=== PATIENT | female | born 1970 | race Caucasian/White ===

== ENCOUNTER 2017-10-21 22:44 | Emergency (ER) | payer SELFPAY ==
[~2017-10-21] VITALS: Ht 157.5 cm; Wt 62.1 kg
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
--- NOTE | 2017-10-22 00:17 | NUR ---
PT PROVIDED SNACK. PT RESTING CALMLY IN BED, NO DISTRESS NOTED.
[2017-10-22 00:21] LABS: BASOPHILS # (AUTO) 0.1 K/uL (0.0-8.0); BASOPHILS % (AUTO) 1.3 % (0.0-2.0); EOSINOPHILS % (AUTO) 0.3 % (0.0-7.0); HEMATOCRIT 28.9 % (31.2-41.9); HEMOGLOBIN 9.1 g/dL (10.9-14.3); LYMPHOCYTES # (AUTO) 0.8 K/uL (20.0-40.0); LYMPHOCYTES % (AUTO) 10.3 % (20.5-51.5); MEAN CORPUSCULAR HEMOGLOBIN 19.9 uug (24.7-32.8); MEAN CORPUSCULAR HGB CONC 32 g/dL (32.3-35.6); MEAN CORPUSCULAR VOLUME 63.1 fL (75.5-95.3); MONOCYTES # (AUTO) 0.3 K/uL (2.0-10.0); MONOCYTES % (AUTO) 3.5 % (0.0-11.0); NEUTROPHILS # (AUTO) 6.8 K/uL (1.8-8.9); NEUTROPHILS % (AUTO) 84.6 % (38.5-71.5); PLATELET COUNT (AUTO) 280 K/uL (179-408); RED BLOOD CELL COUNT(AUTO) 4.58 MIL/uL (3.63-4.92)
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
--- NOTE | 2017-10-22 00:28 | NUR ---
SECURITY AT PT BEDSIDE.
[2017-10-22 00:32] LABS: CARBON DIOXIDE 25 mmol/L (21-32); CHLORIDE 105 mmol/L (98-107); CREATININE 0.9 mg/dL (0.6-1.3); GLUCOSE 63 mg/dL (74-106); POTASSIUM 3.9 mmol/L (3.5-5.1); UREA NITROGEN, BLOOD 24 mg/dL (7-18)
--- NOTE | 2017-10-22 00:32 | NUR ---
DR RM SPEAKING W/ ART CAPILLA FOR CRISIS EVAL.
[2017-10-22 00:35] LABS: ETHANOL < 3 MG/DL (0-0)
[2017-10-22 00:44] LABS: ALANINE AMINOTRANSFERASE 30 U/L (14-59); ALKALINE PHOSPHATASE 98 U/L (50-136); ASPARTATE AMINOTRANSFERASE 34 U/L (15-37); BILIRUBIN,DIRECT 0.1 mg/dL (0.0-0.2); BILIRUBIN,TOTAL 0.6 mg/dL (0.2-1.0); TOTAL PROTEIN, SERUM 7.9 g/dL (6.4-8.2)
[2017-10-22 00:45] LABS: THYROID STIMULATING HORMONE 2.837 mIU/mL (0.358-3.740)
[2017-10-22 00:46] LABS: ACETAMINOPHEN < 2.0 ug/mL (10-30)
--- NOTE | 2017-10-22 01:10 | NUR ---
ART AT BEDSIDE FOR CRISIS EVAL.
[2017-10-22 01:27] LABS: EOSINOPHILS % (MANUAL) 2 % (0-8); LYMPHOCYTES % (MANUAL) 11 % (20-40); MONOCYTES % (MANUAL) 4 % (2-10); NEUTROPHILS % (MANUAL) 83 % (42-75)
[2017-10-22] MEDS ORDERED: IBUPROFEN 600 MG TABLET PO ONE (01:30)
[2017-10-22] MEDS ORDERED: OLANZAPINE 5 MG TABLET PO ONE (01:30)
[2017-10-22] MEDS ORDERED: OLANZAPINE 5 MG TABLET ONE (01:35)
--- NOTE | 2017-10-22 02:05 | NUR ---
PT RESTING IN BED W/ EYES CLOSED. NO ACUTE DIISTRESS NOTED.
[2017-10-22] MEDS ORDERED: diphenhydrAMINE 50 MG/1 ML VIAL IM ONE (02:30)
[2017-10-22] MEDS ORDERED: OLANZAPINE 10 MG VIAL IM ONE ×2 (02:30→02:40)
[2017-10-22] MEDS ORDERED: diphenhydrAMINE 50 MG/1 ML VIAL ONE (02:39)
--- NOTE | 2017-10-22 02:40 | NUR ---
PT GETTING OUT OF BED AND YELLING IN ER AND VERBALLY THREATENING STAFF. PT IS ERRATIC. CODE ARMANI CALLED. PT TO BE PLACED IN RESTRAINTS PER MD. STRATEGIC COMMUNICATIONS MANAGER AWARE AND AT BEDSIDE.
[2017-10-22 04:22] LABS: *BILIRUBIN,URIN NEGATIVE (NEGATIVE); *BLOOD, URINE 3+ (NEGATIVE); *CLARITY,URINE SLIGHTLY CLOUDY (CLEAR); *COLOR,URINE YELLOW (YELLOW); *KETONES,URINE NEGATIVE (NEGATIVE); *PROTEIN,URINE NEGATIVE (NEGATIVE); *UROBILINOGEN,URINE 0.2 E.U./dl (NORMAL); LEUKOCYTE ESTERASE ,URINE TRACE (NEGATIVE); NITRITE, URINE NEGATIVE (NEGATIVE); UGLUCOSE NEGATIVE (NEGATIVE)
[2017-10-22 04:35] LABS: *AMPHETAMINE, URINE POSITIVE (NEGATIVE); *BARBITURATE, URINE NEGATIVE (NEGATIVE); *CANNABINOID, URINE POSITIVE (NEGATIVE); *COCCAINE, URINE NEGATIVE (NEGATIVE); *OPIATE, URINE NEGATIVE (NEGATIVE); *PHENCYCLIDINE SCREEN,URINE NEGATIVE (NEGATIVE)
[2017-10-22 04:37] LABS: BACTERIA,URINE NONE SEEN /HPF (NONE SEEN); RBC,URINE 50-80 /HPF (0-3); SQUAMOUS EPITHELIAL CELL,UR FEW /HPF (NONE SEEN)
--- NOTE | 2017-10-22 05:16 | NUR ---
PT TAKEN OUT OF RESTRAINTS AT THIS POINT. PT MADE VERBAL CONTRACT TO NOT HARM SELF OR OTHERS. PT STATES SHE JUST NEEDS TO "SLEEP IT OFF." AND CABLE TESTERS HELPER AWARE.
--- NOTE | 2017-10-22 06:05 | NUR ---
PT RESTING IN BED W/ EYES CLOSED. NO DISTRESS NOTED.
--- NOTE | 2017-10-22 07:03 | NUR ---
SITTER AT PT BEDSIDE. NO DISTRESS NOTED.
--- NOTE | 2017-10-22 07:20 | NUR ---
Cash Posting Representative assumes care. Patient is sleeping on her right side, easily arousable, 1:1 sitter is at bedside. No restraints seen, respiration:easy, for discharge later in am per previous nurse when patient is not anymore manic 2/2 methamphetamine use per Sal's (last night's crisis director social service) recommendation.
--- NOTE | 2017-10-22 09:15 | NUR ---
Patient is AOx4, appropriate at this time, talking and laughing with the sitter, NAD, pending disposition.
--- NOTE | 2017-10-22 09:20 | NUR ---
Patient ambulated to the bathroom with slow steady gait.
--- NOTE | 2017-10-22 09:48 | NUR ---
Patient suddenly went out of room 1B, patient loudly saying, " I want to see the ER doctor. I am homeless. Bret gave my $800.00 money to the doctor." Dr Ozuna notified. privacy officer notified.
--- NOTE | 2017-10-22 09:51 | NUR ---
Lydia Rand called, unable to contract safety with the patient at this time.
--- NOTE | 2017-10-22 09:58 | NUR ---
Patient moved to bed 3 from I-B, food tray provided. 1:1 sitter observation maintained. SBAR to TITI Hopkins accordingly.
--- NOTE | 2017-10-22 10:22 | NUR ---
Patient ate 100% of the breakfast tray, pending repeat crisis social worker palliative care's evaluation@this time
--- NOTE | 2017-10-22 11:26 | NUR ---
Patient given written and verbal discharge instructions. Patient verbalizes understanding of instructions. Patient is ambulatory with steady gait. Refuses offer of [facility]pc placement. Patient given list of available shelters in surrounding area.
== END 2017-10-22 11:29 | disposition home or self-care (01) ==
LOC: ER 22:44
DX: F15.959 Other stimulant use, unspecified with stimulant-induced psychotic disorder, unspecified (principal); Z59.0 Homelessness
CPT/HCPCS: 36415; 80307; 84443; 84703; 85025; A4663; G0480; G0480-TC; J1200; J2358

== ENCOUNTER 2019-09-16 21:00 | Emergency (ER) | payer MEDICAID, OTHER ==
[~2019-09-16] VITALS: Ht 157.5 cm; Wt 63.5 kg
[2019-09-16] MEDS ORDERED: ONDANSETRON ODT 4 MG TAB.RAPDIS SL ONE (21:15)
[2019-09-16] MEDS ORDERED: diphenhydrAMINE 50 MG CAPSULE PO ONE (21:15)
[2019-09-16] MEDS ORDERED: CLONAZEPAM 0.5 MG TABLET PO ONE (21:15)
[2019-09-16] MEDS ORDERED: OLANZAPINE 5 MG TABLET PO ONE (21:15)
[2019-09-16] MEDS ORDERED: HYDROCODONE/APAP 10-325 MG TABLET PO ONE (21:15)
--- NOTE | 2019-09-16 21:25 | NUR ---
Security at bedside searching for contraband.
--- NOTE | 2019-09-16 21:29 | NUR ---
Pt refusing treatment, and medical screening, and was verbally abusive and raising her voice at ER staff, MD, and security.
--- NOTE | 2019-09-16 21:38 | NUR ---
Patient eloped from facility. ER physician notified. Last seen [phone].
== END 2019-09-16 21:41 | disposition left against medical advice (07) ==
LOC: ER 21:02
DX: F15.10 Other stimulant abuse, uncomplicated (principal); Z76.5 Malingerer [conscious simulation]; Z59.0 Homelessness; F31.9 Bipolar disorder, unspecified; F17.210 Nicotine dependence, cigarettes, uncomplicated
CPT/HCPCS: A4663

== ENCOUNTER 2019-09-30 08:17 | Emergency (ER) | payer MEDICAID ==
[~2019-09-30] VITALS: Ht 157.5 cm; Wt 61.2 kg
--- NOTE | 2019-09-30 08:20 | NUR ---
PT BROUGHT IN BY [facility], PT IS AMBULATORY AND WITH STABLE GAIT, CARRYING TWO BIG BAGS OF BELONGINGS. Patient is AOx4, speaking in complete sentences, speech is clear. Patient is able to follow /comprehend directions. Gait is stable. No cardiovascular distress noted. Rate and rhythm are regular. No CP. No respiratory distress noted. Respirations even & unlabored with symmetrical chest rise. No adventitious sounds noted. Chief complaint: R ARM PAIN Patient denies Fever/Chills. No recent travel.SI AND [place] HX, BIPOLAR/NKDA. DENIES HX OF SURGERY OR TRAUMA
--- NOTE | 2019-09-30 08:22 | NUR ---
ERMD AT BEDSIDE PT CLAIMED SI WITH VAGUE PLAN F INHALING FUMES PT ROOM NEAR NURSES' STATION INITIATED SI POLICY 1ON1 AT BEDSIDE PT KEPT SAFE WARM AND COMFORTABLE DECREASED EXT STIMULI MONITORED ACCORDINGLY
--- NOTE | 2019-09-30 08:31 | NUR ---
patient states she lives "with my friend Harper"
[2019-09-30] MEDS ORDERED: diphenhydrAMINE 25 MG CAP PO ONE ×2 (08:45→08:46)
[2019-09-30 08:59] LABS: *BILIRUBIN,URIN NEGATIVE (NEGATIVE); *BLOOD, URINE 3+ (NEGATIVE); *COLOR,URINE YELLOW (YELLOW); *KETONES,URINE NEGATIVE (NEGATIVE); LEUKOCYTE ESTERASE ,URINE NEGATIVE (NEGATIVE); NITRITE, URINE NEGATIVE (NEGATIVE); PH,URINE 6.5 (5.0-8.0); UGLUCOSE NEGATIVE (NEGATIVE)
[2019-09-30 09:01] LABS: *CLARITY,URINE SLIGHTLY HAZY (CLEAR)
[2019-09-30 09:02] LABS: BASOPHILS # (AUTO) 0.1 K/uL (0.0-8.0); BASOPHILS % (AUTO) 1.9 % (0.0-2.0); EOSINOPHILS # (AUTO) 0.1 K/uL (0.0-0.7); EOSINOPHILS % (AUTO) 1.3 % (0.0-7.0); HEMATOCRIT 35.2 % (31.2-41.9); HEMOGLOBIN 11.4 g/dL (10.9-14.3); LYMPHOCYTES # (AUTO) 1.1 K/uL (20.0-40.0); LYMPHOCYTES % (AUTO) 24.7 % (20.5-51.5); MEAN CORPUSCULAR HEMOGLOBIN 26.4 uug (24.7-32.8); MEAN CORPUSCULAR HGB CONC 32 g/dL (32.3-35.6); MEAN CORPUSCULAR VOLUME 81.6 fL (75.5-95.3); MONOCYTES # (AUTO) 0.3 K/uL (2.0-10.0); NEUTROPHILS # (AUTO) 2.8 K/uL (1.8-8.9); NEUTROPHILS % (AUTO) 65.1 % (38.5-71.5); PLATELET COUNT (AUTO) 186 K/uL (179-408); RED BLOOD CELL COUNT(AUTO) 4.31 MIL/uL (3.63-4.92); WHITE BLOOD COUNT (AUTO) 4.3 K/uL (3.8-11.8)
[2019-09-30 09:13] LABS: CARBON DIOXIDE 25 mmol/L (21-32); CHLORIDE 107 mmol/L (98-107); CREATININE 0.8 mg/dL (0.6-1.3); GLUCOSE 93 mg/dL (74-106); POTASSIUM 4.1 mmol/L (3.5-5.1); UREA NITROGEN, BLOOD 29 mg/dL (7-18)
--- NOTE | 2019-09-30 09:19 | NUR ---
PT CALM AND RESTED AT [facility] FREQUENT VISUAL CHECKS DONE MONITORED ACCORDINGLY
[2019-09-30 09:20] LABS: ALANINE AMINOTRANSFERASE 28 U/L (14-59); ALKALINE PHOSPHATASE 83 U/L (50-136); ASPARTATE AMINOTRANSFERASE 39 U/L (15-37); BILIRUBIN,DIRECT 0.1 mg/dL (0.0-0.2); BILIRUBIN,TOTAL 0.4 mg/dL (0.2-1.0); TOTAL PROTEIN, SERUM 7.3 g/dL (6.4-8.2)
[2019-09-30 09:21] LABS: ACETAMINOPHEN < 2.0 ug/mL (10-30)
[2019-09-30 09:23] LABS: ETHANOL < 3 MG/DL (0-0)
[2019-09-30 09:26] LABS: *AMPHETAMINE, URINE NEGATIVE (NEGATIVE); *BARBITURATE, URINE NEGATIVE (NEGATIVE); *CANNABINOID, URINE NEGATIVE (NEGATIVE); *COCCAINE, URINE NEGATIVE (NEGATIVE); *OPIATE, URINE NEGATIVE (NEGATIVE); *PHENCYCLIDINE SCREEN,URINE NEGATIVE (NEGATIVE)
--- NOTE | 2019-09-30 09:32 | NUR ---
ERMD ON THE PHONE WITH CRISIS CAREER MANAGER (NATE) CALL BACK [phone] STATES ETA WILL BE AN HOUR-2HOURS FROM NOW
[2019-09-30 09:35] LABS: BACTERIA,URINE NONE SEEN /HPF (NONE SEEN); RBC,URINE 20-50 /HPF (0-3); SQUAMOUS EPITHELIAL CELL,UR FEW /HPF (NONE SEEN); WBC,URINE 0-3 /HPF (0-3)
--- NOTE | 2019-09-30 10:12 | NUR ---
PT IS MEDICALLY CLEARED ABLE TO TOLERATE BREAKFAST PENDING CRISIS PHOTONIC LABORATORY TECHNICIAN EVAL PT IS KEPT CALM AND COMFORTABLE VISUAL CHECKS EVERY HOUR SI PREC STILL IN PLACE
[2019-09-30] MEDS ORDERED: ACETAMINOPHEN ES 500 MG TABLET PO ONE (10:15)
[2019-09-30] MEDS ORDERED: ACETAMINOPHEN ES 500 MG TABLET ONE (10:18)
[2019-09-30] MEDS ORDERED: NICOTINE 21 MG/24HR PATCH TD STA (11:06)
--- NOTE | 2019-09-30 11:15 | NUR ---
PINKY AT BEDSIDE FOR PSYCHE EVAL
--- NOTE | 2019-09-30 11:55 | NUR ---
PT GOT UP AND STATED: "I AM MAKING EVERYTHING UP, I DO NOT FEEL SUICIDAL. AND I DO NOT WANT TO BE PLACED" Patient does not wish to proceed with medical care recommended by Dr. ECHAVARRIA. Patient given information related to possible complications, up to and including , which could occur as a result of leaving the hospital at this time. Patient verbalizes understanding of risks involved due to leaving against medical advice. Patient has REFUSED TO sign AMA form.
[2019-09-30 12:04] VITALS: BP 128/82
== END 2019-09-30 12:06 | disposition left against medical advice (07) ==
LOC: ER 08:17
DX: F31.9 Bipolar disorder, unspecified (principal); J45.909 Unspecified asthma, uncomplicated; G43.909 Migraine, unspecified, not intractable, without status migrainosus; Z59.0 Homelessness; F17.210 Nicotine dependence, cigarettes, uncomplicated; F15.10 Other stimulant abuse, uncomplicated; F19.10 Other psychoactive substance abuse, uncomplicated
CPT/HCPCS: 36415; 80048; 80076; 80307 ×2; 80329; 81001; 85025; 99284; G0480; Q0163; A4663; A9150